=== PATIENT | male | born 1980 | race Caucasian/White ===

== ENCOUNTER 2018-12-02 20:38 | Emergency (ER) | payer SELFPAY ==
[~2018-12-02] VITALS: Ht 172.7 cm; Wt 74.8 kg
[2018-12-02 21:01] VITALS: BP 131/92
[2018-12-02] MEDS ORDERED: CEPH-264 PO (21:11)
[2018-12-02] MEDS ORDERED: HYDR-3165 PO (21:11)
--- NOTE | 2018-12-02 21:11 | PHYS DOC ---
Past History Past Medical History: No Pertinent History Past Surgical History: Spleenectomy, Other Additional Smoking Information: CHEWS TOBACCO Alcohol Use: Heavy Drug Use: Marijuana Adult General Chief Complaint Chief Complaint: FINGER INJURY HPI HPI 38-year-old male presents with left ring finger injury. The patient was working earlier today when he shot a siding nail through his left ring finger. The nail went all the way through. The patient worked the rest of the day. He came in tonight because he knows that his tetanus shot is out of date and he is having more pain. He wasn't sure if it should be sutured. Patient's labs tetanus was more than 10 years ago. He denies fever or chills. He has no other injuries. He does not believe there is a foreign body, but cannot be sure. He denies numbness or loss of sensation. Review of Systems Review of Systems Constitutional: Denies fever or chills [] Eyes: Denies change in visual acuity, redness, or eye pain [] HENT: Denies nasal congestion or sore throat [] Respiratory: Denies cough or shortness of breath [] Cardiovascular: No additional information not addressed in HPI [] GI: Denies abdominal pain, nausea, vomiting, bloody stools or diarrhea [] : Denies dysuria or hematuria [] Musculoskeletal: Denies back pain or joint pain [] Integument: Puncture wound left ring finger[] Neurologic: Denies headache, focal weakness or sensory changes [] Endocrine: Denies polyuria or polydipsia [] All other systems were reviewed and found to be within normal limits, except as documented in this note. Current Medications Current Medications Current Medications Medications (Trade) Dose Ordered Sig/Javi Start Time Stop Time Status Last Admin Dose Admin Cephalexin HCl (Keflex) 500 mg 1X ONCE 12/02/18 21:15 12/02/18 21:16 UNV Diphtheria/ Tetanus/Acell Pertussis (Boostrix) 0.5 ml ONCE ONCE 12/02/18 21:15 12/02/18 21:16 UNV Allergies Allergies Allergies Coded Allergies Type Severity Reaction Last Updated Verified amoxicillin Allergy Unknown 12/02/18 Yes Physical Exam Physical Exam Constitutional: Well developed, well nourished, no acute distress, non-toxic appearance. [] HENT: Normocephalic, atraumatic, bilateral external ears normal, oropharynx moist, no oral exudates, nose normal. [] Eyes: PERRLA, EOMI, conjunctiva normal, no discharge. [] Neck: Normal range of motion, no tenderness, supple, no stridor. [] Cardiovascular:Heart rate regular rhythm, no murmur [] Lungs & Thorax: Bilateral breath sounds clear to auscultation [] Abdomen: Bowel sounds normal, soft, no tenderness, no masses, no pulsatile masses. [] Skin: 2 puncture wounds in left ring finger, one appears to be entry and the other and exit wound. [] Back: No tenderness, no CVA tenderness. [] Extremities: No tenderness, no cyanosis, no clubbing, ROM intact, no edema. [] Neurologic: Alert and oriented X 3, normal motor function, normal sensory function, no focal deficits noted. [] Psychologic: Affect normal, judgement normal, mood normal. [] Current Patient Data Vital Signs Vital Signs Date Time Temp Pulse Resp B/P (MAP) Pulse Ox O2 Delivery O2 Flow Rate FiO2 12/02/18 21:01 97.9 106 20 97 Room Air EKG EKG [] Radiology/Procedures Radiology/Procedures [] Impressions: Preliminary interpretation left fingers: No acute fracture dislocation is seen. No radiopaque foreign body is seen. Course & Med Decision Making Course & Med Decision Making Pertinent Labs and Imaging studies reviewed. (See chart for details) We will the patient his tetanus in the ER. I have ordered an x-ray to rule out foreign body. I will also place him on Keflex for 7 days. We will give the first dose in the ED. The patient does not appear to have a foreign body or fracture. I will discharge him with a short course of [place] 5/325 for his pain. He is stable for discharge at this time. [] Dragon Disclaimer Dragon Disclaimer This electronic medical record was generated, in whole or in part, using a voice recognition dictation system. Departure Departure: Impression: Primary Impression: Puncture wound of finger of left hand Disposition: HOME, SELF-CARE Condition: STABLE Patient Instructions: Puncture Wound, [id number] Scripts Cephalexin (KEFLEX) 500 Mg Capsule 1 CAP PO TID for finger injury, #21 CAP Prov: ADIS RIBERA DO 12/02/18 Hydrocodone Bit/Acetaminophen (NORCO 5-325 TABLET) 1 Each Tablet 1 TAB PO PRN Q6HRS PRN for PAIN, #10 TAB 0 Refills Prov: ADIS RIBERA DO 12/02/18 Problem Qualifiers Primary Impression: Puncture wound of finger of left hand Encounter type: initial encounter Qualified Codes: S61.239A - Puncture wound without foreign body of unspecified finger without damage to nail, initial encounter ADIS RIBERA DO Dec 02, 2018 21:11
[2018-12-02] MEDS ORDERED: DIPHTH,PERTUSS(ACELL),TET TOX 0.5 ML DISP.SYRIN. VAX IM ONE (21:15)
[2018-12-02] MEDS ORDERED: CEPHALEXIN 250 MG CAPSULE PO ONE (21:15)
[2018-12-02] MEDS ORDERED: HYDROcodone/APAP 5/325MG 1 TAB TABLET PO ONE (21:30)
[2018-12-02] MEDS ORDERED: NAPROXEN 500 MG TABLET PO ONE (21:30)
--- NOTE | 2018-12-02 21:59 | RAD ---
Examination: 3 views of the left fourth digit HISTORY: History of nail through the fourth finger COMPARISON: None available. Findings/ impression: The alignment of the fourth metacarpophalangeal joint, interphalangeal joint grossly appears unremarkable. There is no acute fracture or dislocation identified. Probable small soft tissue laceration identified volar to the distal phalanx of the fourth digit. Faint density identified in the volar aspect of the site of the laceration probably secondary laceration however subtle foreign body is not completely excluded. Correlate clinically. Electronically signed by: Trevor Stone MD (12/02/2018 9:56 PM) [facility]
== END 2018-12-02 21:35 | disposition home or self-care (01) ==
LOC: ER 20:38
DX: S61.235A Puncture wound without foreign body of left ring finger without damage to nail, initial encounter (principal); F17.220 Nicotine dependence, chewing tobacco, uncomplicated; F10.20 Alcohol dependence, uncomplicated; Z88.1 Allergy status to other antibiotic agents; Y90.9 Presence of alcohol in blood, level not specified; W45.0XXA Nail entering through skin, initial encounter; Y93.89 Activity, other specified; Y92.89 Other specified places as the place of occurrence of the external cause; Y99.8 Other external cause status
CPT/HCPCS: 73140; 90471; 90715; 99284

== ENCOUNTER 2019-07-23 15:42 | Emergency (ER) | payer SELFPAY ==
[~2019-07-23] VITALS: Ht 172.7 cm; Wt 79.5 kg
[~2019-07-23 15:42] MED LIST: CEPH-264 PO; HYDR-3165 PO
--- NOTE | 2019-07-23 16:10 | PHYS DOC ---
Past History Past Medical History: Alcoholism (DEANGELO SORENSEN DO) Past Medical History: Alcoholism (ISABELLA MATTSON MD) Past Surgical History: Spleenectomy, Other Additional Past Surgical Histo: ran over at 4 years old sustained lac liver and spleen removed (DEANGELO SORENSEN DO) Additional Smoking Information: chew tobacco Alcohol Use: Heavy Drug Use: Marijuana (DEANGELO SORENSEN DO) Smoking: Cigarettes (ISABELLA MATTSON MD) General Adult EDM: Chief Complaint: ABDOMINAL PAIN HPI: HPI: Patient is a 38-year-old long time alcoholic who states he drinks about 30 beers a day. He presents today with a one-month history of epigastric pain. He states there is no particular time of day that its better or worse. He states he has not had any melena or hematemesis. He states it certainly hurts worse after drinking. [] (DEANGELO SORENSEN DO) Review of Systems: Review of Systems: Constitutional: Denies fever or chills Eyes: Denies change in visual acuity HENT: Denies nasal congestion or sore throat Respiratory: Denies cough or shortness of breath Cardiovascular: Denies chest pain or edema GI: Per HPI : Denies dysuria Musculoskeletal: Denies back pain or joint pain Integument: Denies rash Neurologic: Denies headache, focal weakness or sensory changes Endocrine: Denies polyuria or polydipsia Lymphatic: Denies swollen glands Psychiatric: Denies depression or anxiety (DEANGELO SORENSEN DO) Heart Score: Risk Factors: Risk Factors: DM, Current or recent (<one month) smoker, HTN, HLP, family history of CAD, obesity. Risk Scores: Score 0 - 3: 2.5% MACE over next 6 weeks - Discharge Home Score 4 - 6: 20.3% MACE over next 6 weeks - Admit for Clinical Observation Score 7 - 10: 72.7% MACE over next 6 weeks - Early Invasive Strategies (DEANGELO SORENSEN DO) Allergies: Allergies: Allergies Coded Allergies Type Severity Reaction Last Updated Verified amoxicillin Allergy Unknown 07/23/19 Yes (DEANGELO SORENSEN DO) Physical Exam: PE: Constitutional: Well developed, well nourished, no acute distress, non-toxic appearance. [] HENT: Normocephalic, atraumatic, bilateral external ears normal, oropharynx moist, no oral exudates, nose normal. [] Eyes: PERRLA, EOMI, conjunctiva normal, no discharge. [] Neck: Normal range of motion, no tenderness, supple, no stridor. [] Cardiovascular:Heart rate regular rhythm, no murmur [] Lungs & Thorax: Bilateral breath sounds clear to auscultation [] Abdomen: B mild epigastric tender to palp [] Skin: Warm, dry, no erythema, no rash. [] Back: No tenderness, no CVA tenderness. [] Extremities: No tenderness, no cyanosis, no clubbing, ROM intact, no edema. [] Neurologic: Alert and oriented X 3, normal motor function, normal sensory function, no focal deficits noted. [] Psychologic:anxious. [] (DEANGELO SORENSEN DO) Current Patient Data: Vital Signs: Vital Signs Date Time Temp Pulse Resp B/P (MAP) Pulse Ox O2 Delivery O2 Flow Rate FiO2 07/23/19 15:56 98.3 94 18 160/103 (122) 98 Room Air (DEANGELO SORENSEN DO) EKG: EKG: [] (DEANGELO SORENSEN DO) Radiology/Procedures: Radiology/Procedures: [] Impressions: TECHNIQUE: Multiple axial CT images of the abdomen and pelvis were obtained after the intravenous administration of nonionic contrast. Coronal and sagittal reformats are provided. FINDINGS: Lung bases are clear. Heart size within normal limits. Hypoattenuation the hepatic parenchyma suggestive of hepatic steatosis. No suspicious hepatic masses are identified. Portal venous system is widely patent. Splenules are identified in the left upper quadrant of the abdomen. There are no peripancreatic inflammatory changes. Gallbladder is present without adjacent inflammation. Adrenal glands are normal. The abdominal aorta is normal in course and caliber. There are no pathologically enlarged lymph nodes in the abdomen and pelvis. There is no abdominal free fluid. There is no free intraperitoneal air. There is irregularity of the cortex of the superior pole the left kidney which may be secondary to prior infectious or vascular insult. There may be a cortically based cyst measuring 2.7 cm, though motion limits evaluation. No renal calculi are identified. Small extrarenal pelvis is identified on the right. Small and large bowel are normal in caliber. There is no evidence for bowel obstruction. There are no pericolonic inflammatory changes. A normal, nondilated appendix is visualized without adjacent inflammatory changes. Mild distention of the stomach is noted containing fluid and debris. Urinary bladder is mildly distended measuring 12.4 x 9.5 x 11.8 cm. No suspicious pelvic mass is identified. No suspicious osseous normality is identified. At L4-L5, there is a central disc extrusion resulting in mild to moderate spinal canal stenosis. IMPRESSION: 1. There is mild distention of the urinary bladder measuring 12.4 x 9.5 x 1.8 cm. Assessment of postvoid residual may be of benefit to assess for urinary retention. 2. Splenules in the left upper quadrant. Correlate with history of splenectomy. Next on 3. Diffuse hepatic steatosis. 4. Cortical irregularity of the superior pole the left kidney may be secondary prior infectious/vascular insult. There may be cortical based cyst along the superior pole left kidney measuring 2.7 cm. This may be further confirmed with renal ultrasound as clinically warranted. (DEANGELO SORENSEN DO) Radiology/Procedures: [place] [address] IMAGING REPORT Signed PATIENT: COURTNEY DIALLO ACCOUNT: [id number] : 1980 LOCATION: ER AGE: 38 SEX: M EXAM STATUS: REG ER ORD. PHYSICIAN: DEANGELO SORENSEN DO REASON: RUQ ABD PAIN, ETOH DAILY, N/V PROCEDURE: CT ABD PELV W/ IV CONTRST ONLY PQRS Compliance Statement: One or more of the following individualized dose reduction techniques were utilized for this examination: 1. Automated exposure control 2. Adjustment of the mA and/or kV according to patient size 3. Use of iterative reconstruction technique CT abdomen/pelvis with contrast 07/23/2019 4:06 PM INDICATION: Right upper quadrant abdominal pain, daily EtOH. Nausea and vomiting. COMPARISON: None available TECHNIQUE: Multiple axial CT images of the abdomen and pelvis were obtained after the intravenous administration of nonionic contrast. Coronal and sagittal reformats are provided. FINDINGS: Lung bases are clear. Heart size within normal limits. Hypoattenuation the hepatic parenchyma suggestive of hepatic steatosis. No suspicious hepatic masses are identified. Portal venous system is widely patent. Splenules are identified in the left upper quadrant of the abdomen. There are no peripancreatic inflammatory changes. Gallbladder is present without adjacent inflammation. Adrenal glands are normal. The abdominal aorta is normal in course and caliber. There are no pathologically enlarged lymph nodes in the abdomen and pelvis. There is no abdominal free fluid. There is no free intraperitoneal air. There is irregularity of the cortex of the superior pole the left kidney which may be secondary to prior infectious or vascular insult. There may be a cortically based cyst measuring 2.7 cm, though motion limits evaluation. No renal calculi are identified. Small extrarenal pelvis is identified on the right. Small and large bowel are normal in caliber. There is no evidence for bowel obstruction. There are no pericolonic inflammatory changes. A normal, nondilated appendix is visualized without adjacent inflammatory changes. Mild distention of the stomach is noted containing fluid and debris. Urinary bladder is mildly distended measuring 12.4 x 9.5 x 11.8 cm. No suspicious pelvic mass is identified. No suspicious osseous normality is identified. At L4-L5, there is a central disc extrusion resulting in mild to moderate spinal canal stenosis. IMPRESSION: 1. There is mild distention of the urinary bladder measuring 12.4 x 9.5 x 1.8 cm. Assessment of postvoid residual may be of benefit to assess for urinary retention. 2. Splenules in the left upper quadrant. Correlate with history of splenectomy. Next on 3. Diffuse hepatic steatosis. 4. Cortical irregularity of the superior pole the left kidney may be secondary prior infectious/vascular insult. There may be cortical based cyst along the superior pole left kidney measuring 2.7 cm. This may be further confirmed with renal ultrasound as clinically warranted. Electronically signed by: Maged Cohen MD (07/23/2019 5:21 PM) [facility] DICTATED AND SIGNED BY: MAGED COHEN MD DATE: 07/23/19 4011 CC: PCP,NO; DEANGELO SORENSEN DO ~ (ISABELLA MATTSON MD) Course & Med Decision Making: Course & Med Decision Making Pertinent Labs and Imaging studies reviewed. (See chart for details) [] (DEANGELO SORENSEN DO) Course & Med Decision Making 1. Abdomen Pain 2. Alcohol Abuse 3. Elevation AST, ALT, Alk Phos. 117 Pt. demanding discharge at shift change. Pt. stay on a clear fluid diet only for the next 2 days. No solids no milk products. Patient encouraged to consider alcohol rehab program. Patient encouraged to take a daily multivitamin. Patient encouraged to stop smoking.. Patient turning concerned. Patient encouraged to follow-up with primary care. Patient advised of his elevated liver enzymes AST 110 ALT 131 and alk phos 117. (ISABELLA MATTSON MD) Dragon Disclaimer: Dragon Disclaimer: This electronic medical record was generated, in whole or in part, using a voice recognition dictation system. (DEANGELO SORENESN DO) Dragon Disclaimer: d (ISABELLA MATTSON MD) Departure Departure: Disposition: HOME/RESIDENCE PRIOR TO ADM Condition: STABLE Referrals: PCP,NO (PCP) Dragon Disclaimer This chart was dictated in whole or in part using Voice Recognition software in a busy, high-work load, and often noisy Emergency Department environment. It may contain unintended and wholly unrecognized errors or omissions. (ISABELLA MATTSON MD) Dragon Disclaimer This chart was dictated in whole or in part using Voice Recognition software in a busy, high-work load, and often noisy Emergency Department environment. It may contain unintended and wholly unrecognized errors or omissions. (ISABELLA MATTSON MD) Dragon Disclaimer This chart was dictated in whole or in part using Voice Recognition software in a busy, high-work load, and often noisy Emergency Department environment. It may contain unintended and wholly unrecognized errors or omissions. (ISABELLA MATTSON MD) Dragon Disclaimer This chart was dictated in whole or in part using Voice Recognition software in a busy, high-work load, and often noisy Emergency Department environment. It may contain unintended and wholly unrecognized errors or omissions. (ISABELLA MATTSON MD) [employer] Operative Report DATE DATE: 07/23/19 TIME: 18:18 (ISABELLA MATTSON MD) DEANGELO SORENSEN DO Jul 23, 2019 16:10 ISABELLA MATTSON MD Jul 23, 2019 17:51
[2019-07-23] MEDS ORDERED: IOHEXOL 300 MG/ML 75 ML VIAL. IV ONE (16:15)
[2019-07-23] MEDS ORDERED: ONDANSETRON PF 4 MG/2 ML VIAL. IV ONE (16:15)
[2019-07-23] MEDS ORDERED: FAMOTIDINE 20 MG/2 ML VIAL IVP ONE (16:15)
[2019-07-23] MEDS ORDERED: MVI, ADULT NO.4 WITH VIT K 10 ML, FOLIC ACID INJ 1 MG, THIAMINE INJ 100 MG in IV RINGER... IV ONE ×4 (16:15)
[2019-07-23] MEDS ORDERED: CONTRAST GIVEN MC PRN (16:30)
[2019-07-23 16:56] LABS: BASO # 0.2 x10^3/uL (0.0-0.2); BASO % 3 % (0-3); EOS # 0.1 x10^3/uL (0.0-0.7); EOS % 1 % (0-3); HEMATOCRIT 43.9 % (39.0-53.0); HEMOGLOBIN 14.8 g/dL (13.0-17.5); LYMPH # 3.3 x10^3/uL (1.0-4.8); LYMPH % 48 % (24-48); MEAN CORPUSCULAR HEMOGLOBIN 33 pg (25-35); MEAN CORPUSCULAR HGB CONC 34 g/dL (31-37); MEAN CORPUSCULAR VOLUME 97 fL (79-100); MONO # 0.9 x10^3/uL (0.0-1.1); MONO % 13 % (0-9); NEUT # 2.4 x10^3uL (1.8-7.7); NEUT % 35 % (31-73); PLATELET COUNT 145 x10^3/uL (140-400); RED BLOOD COUNT 4.51 x10^6/uL (4.30-5.70); WHITE BLOOD COUNT 6.9 x10^3/uL (4.0-11.0)
[2019-07-23 17:06] LABS: CALCIUM 8.4 mg/dL (8.5-10.1); CREATININE 0.7 mg/dL (0.7-1.3); GFR 126.2; POTASSIUM 3.9 mmol/L (3.5-5.1)
[2019-07-23 17:12] LABS: BACTERIA,URINE 0 /HPF (0-FEW); BILIRUBIN,URINE NEG (NEG); CLARITY,URINE CLEAR; COLOR,URINE YELLOW; GLUCOSE,URINE NEG (NEG); NITRITE,URINE NEG (NEG); RBC,URINE 0 /HPF (0-2); UROBILINOGEN,URINE 0.2 mg/dL (0.2 mg/dL); WBC,URINE 0 /HPF (0-4)
[2019-07-23 17:15] LABS: ALBUMIN/GLOBULIN RATIO 0.8 (1.0-1.7); TOTAL BILIRUBIN 0.3 mg/dL (0.2-1.0); TOTAL PROTEIN 8.9 g/dL (6.4-8.2)
--- NOTE | 2019-07-23 17:24 | RAD ---
PQRS Compliance Statement: One or more of the following individualized dose reduction techniques were utilized for this examination: 1. Automated exposure control 2. Adjustment of the mA and/or kV according to patient size 3. Use of iterative reconstruction technique CT abdomen/pelvis with contrast 07/23/2019 4:06 PM INDICATION: Right upper quadrant abdominal pain, daily EtOH. Nausea and vomiting. COMPARISON: None available TECHNIQUE: Multiple axial CT images of the abdomen and pelvis were obtained after the intravenous administration of nonionic contrast. Coronal and sagittal reformats are provided. FINDINGS: Lung bases are clear. Heart size within normal limits. Hypoattenuation the hepatic parenchyma suggestive of hepatic steatosis. No suspicious hepatic masses are identified. Portal venous system is widely patent. Splenules are identified in the left upper quadrant of the abdomen. There are no peripancreatic inflammatory changes. Gallbladder is present without adjacent inflammation. Adrenal glands are normal. The abdominal aorta is normal in course and caliber. There are no pathologically enlarged lymph nodes in the abdomen and pelvis. There is no abdominal free fluid. There is no free intraperitoneal air. There is irregularity of the cortex of the superior pole the left kidney which may be secondary to prior infectious or vascular insult. There may be a cortically based cyst measuring 2.7 cm, though motion limits evaluation. No renal calculi are identified. Small extrarenal pelvis is identified on the right. Small and large bowel are normal in caliber. There is no evidence for bowel obstruction. There are no pericolonic inflammatory changes. A normal, nondilated appendix is visualized without adjacent inflammatory changes. Mild distention of the stomach is noted containing fluid and debris. Urinary bladder is mildly distended measuring 12.4 x 9.5 x 11.8 cm. No suspicious pelvic mass is identified. No suspicious osseous normality is identified. At L4-L5, there is a central disc extrusion resulting in mild to moderate spinal canal stenosis. IMPRESSION: 1. There is mild distention of the urinary bladder measuring 12.4 x 9.5 x 1.8 cm. Assessment of postvoid residual may be of benefit to assess for urinary retention. 2. Splenules in the left upper quadrant. Correlate with history of splenectomy. Next on 3. Diffuse hepatic steatosis. 4. Cortical irregularity of the superior pole the left kidney may be secondary prior infectious/vascular insult. There may be cortical based cyst along the superior pole left kidney measuring 2.7 cm. This may be further confirmed with renal ultrasound as clinically warranted. Electronically signed by: Ileana Banegas MD (07/23/2019 5:21 PM) [facility]
[2019-07-23 17:38] LABS: % BASOS 1 % (0-3); % EOS 2 % (0-5); % LYMPHS 50 % (24-48); % MONOS 10 % (0-10); % SEGS 37 % (35-66)
[2019-07-23 17:39] LABS: PLT ESTIMATE ADEQUATE (ADEQUATE)
[2019-07-23 18:26] VITALS: BP 124/69
== END 2019-07-23 18:29 | disposition home or self-care (01) ==
LOC: ER 15:42
DX: R10.13 Epigastric pain (principal); F10.20 Alcohol dependence, uncomplicated; R74.8 Abnormal levels of other serum enzymes; F17.220 Nicotine dependence, chewing tobacco, uncomplicated; Z88.1 Allergy status to other antibiotic agents; Y90.9 Presence of alcohol in blood, level not specified
CPT/HCPCS: 36415; 74177; 80053; 81001; 83690; 85007; 85025; 96365; 96366; 96375; 99285; J2405; J3490; J7120; Q9967

== ENCOUNTER 2019-08-03 20:59 | Emergency (ER) | payer SELFPAY ==
[~2019-08-03] VITALS: Ht 180.3 cm; Wt 77.6 kg
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
[2019-08-03] MEDS ORDERED: FAMOTIDINE 20 MG/2 ML VIAL IVP ONE (21:30)
[2019-08-03] MEDS ORDERED: KETOROLAC 30 MG/ML VIAL. IVP ONE (21:30)
[2019-08-03] MEDS ORDERED: IV RINGERS SOLUTION,LACTATED 1,000 ML IV SCH (21:30)
[2019-08-03] MEDS ORDERED: ONDANSETRON PF 4 MG/2 ML VIAL. IVP ONE (21:30)
[2019-08-03 22:03] LABS: BASO # 0.2 x10^3/uL (0.0-0.2); BASO % 4 % (0-3); EOS # 0.1 x10^3/uL (0.0-0.7); EOS % 1 % (0-3); HEMATOCRIT 40.6 % (39.0-53.0); HEMOGLOBIN 13.7 g/dL (13.0-17.5); LYMPH % 32 % (24-48); MEAN CORPUSCULAR HEMOGLOBIN 32 pg (25-35); MEAN CORPUSCULAR HGB CONC 34 g/dL (31-37); MEAN CORPUSCULAR VOLUME 96 fL (79-100); MONO % 16 % (0-9); NEUT # 2.9 x10^3uL (1.8-7.7); NEUT % 47 % (31-73); PLATELET COUNT 121 x10^3/uL (140-400); RED BLOOD COUNT 4.24 x10^6/uL (4.30-5.70); RED CELL DISTRIBUTION WIDTH 12.7 % (11.5-14.5); WHITE BLOOD COUNT 6.2 x10^3/uL (4.0-11.0)
[2019-08-03 22:22] LABS: INFLUENZA A PATIENT NEGATIVE (NEGATIVE); INFLUENZA B PATIENT NEGATIVE (NEGATIVE)
--- NOTE | 2019-08-03 22:22 | RAD ---
ACUTE ABDOMEN SERIES History: Pain Comparison: None. Findings: Single view of the chest and single supine and upright views of the abdomen are submitted. There is no infiltrate, pleural fluid, pneumothorax, or free air. No gas dilated bowel is identified. Impression: 1. No acute abnormality is identified by radiographs. Electronically signed by: Yung Vargas MD (08/03/2019 10:20 PM) [facility]
[2019-08-03 22:24] LABS: CREATININE 0.6 mg/dL (0.7-1.3); GFR 150.8; POTASSIUM 3.8 mmol/L (3.5-5.1)
[2019-08-03 22:39] LABS: ALBUMIN 3.9 g/dL (3.4-5.0); DIRECT BILIRUBIN 0.2 mg/dL (0.0-0.2); TOTAL BILIRUBIN 0.8 mg/dL (0.2-1.0); TOTAL PROTEIN 8.6 g/dL (6.4-8.2)
--- NOTE | 2019-08-04 00:11 | EKG ---
[address] [address] Test Date: 2019-08-03 Test Time: 21:27:55 Pat Name: COURTNEY DIALLO Department: Room: Gender: M [employer]ight [employer]: : 1980 Requested By: ISABELLA MATTSNO Order Number: [id number] Reading MD: Bala Pérez Measurements Intervals [place] Rate: 79 P: 39 VT: 140 QRS: 63 QRSD: 110 T: 34 QT: 374 QTc: 430 Interpretive Statements SINUS RHYTHM Electronically Signed On 08-05-2019 20:04:42 CDT by Bala Pérez
[2019-08-04] MEDS ORDERED: THIAMINE 200 MG/2 ML VIAL. IV ONE (00:57)
[2019-08-04] MEDS ORDERED: MVI, ADULT NO.4 WITH VIT K 10 ML VIAL IV ONE (00:57)
[2019-08-04 01:05] LABS: BARBITURATES NEG (NEG); BENZODIAZEPINES NEG (NEG); CANNABINOIDS POS (NEG); COCAINE NEG (NEG); METHADONE NEG (NEG); OPIATES NEG (NEG); PHENCYCLIDINE NEG (NEG)
[2019-08-04 01:12] LABS: AMPHETAMINE/METHAMPHETAMINE NEG (NEG)
[2019-08-04 01:27] LABS: BILIRUBIN,URINE NEG (NEG); CLARITY,URINE CLEAR; COLOR,URINE STRAW; GLUCOSE,URINE NEG (NEG)
[2019-08-04 01:28] LABS: NITRITE,URINE NEG (NEG); UROBILINOGEN,URINE 0.2 mg/dL (0.2 mg/dL)
[2019-08-04 01:29] LABS: AMORPHOUS SEDIMENT,UR PRESENT /HPF; BACTERIA,URINE FEW /HPF (0-FEW); RBC,URINE 0 /HPF (0-2); WBC,URINE 0 /HPF (0-4)
[2019-08-04] MEDS ORDERED: MAGNESIUM HYDROXIDE 2,400 MG/30 ML ORAL.SUSP. PO ONE (01:30)
[2019-08-04] MEDS ORDERED: FOLIC ACID 1 MG TABLET PO ONE (01:30)
[2019-08-04] MEDS ORDERED: FAMOTIDINE 20 MG TABLET PO ONE (01:30)
[2019-08-04] MEDS ORDERED: MVI, ADULT NO.4 WITH VIT K 10 ML, THIAMINE INJ 100 MG in IV RINGERS SOLUTION,LACTATED 1... IV ONE ×3 (01:30)
[2019-08-04 05:04] VITALS: BP 143/94
== END 2019-08-04 06:53 | disposition home or self-care (01) ==
LOC: ER 20:59
DX: F10.229 Alcohol dependence with intoxication, unspecified (principal); E87.1 Hypo-osmolality and hyponatremia; R74.8 Abnormal levels of other serum enzymes; R11.2 Nausea with vomiting, unspecified; R74.0 Nonspecific elevation of levels of transaminase and lactic acid dehydrogenase [LDH]; F17.210 Nicotine dependence, cigarettes, uncomplicated; F12.10 Cannabis abuse, uncomplicated; Y90.0 Blood alcohol level of less than 20 mg/100 ml
CPT/HCPCS: 36415; 74022; 80048; 80076; 80307; 81001; 82550; 83605; 83690; 84484; 85025; 85610; 85730; 86140; 87040; 87070; 87804; 87880; 93005; 96361; 96365; 96375; 99285; J1885; J2405; J3490; J7120; 85651; G0480